=== PATIENT | female | born 1960 | race Caucasian/White ===

== ENCOUNTER 2018-08-06 14:24 | Emergency (ER) | payer SELFPAY ==
[2018-08-06] MEDS ORDERED: ONDANSETRON HCL INJ/PF 4 MG/2 ML SDV IV ONE (15:04)
--- NOTE | 2018-08-06 15:13 | ER Document Report ---
ED Medical Screen (RME) - General Chief Complaint: Chest Pain Stated Complaint: CHEST PAIN TRAVEL OUTSIDE OF THE [place] IN LAST 30 DAYS: No - HPI Notes: 08/06/18 15:04 Patient is a 58-year-old female who presents complaining of CP and occ cough that began last evening and a global ORTIZ with nausea and light sensitivity x2 weeks that has been constant. The CP does not radiate. Pt states that his is one of the worst headaches she has had, but used to have bad migraines in the past. She was placed on Fioricet recently by another provider. + smoker. She is able to eat and drink, but does have a decreased p.o. intake. She is urinating normally. Denies any prolonged immobilization, distance travel, recent surgery/trauma, personal cancer history, hormone use, or previous DVT/PE. Denies fever, neck pain, URI, SOB, Abd pain, dysuria, back pain, or rash. I have treated and performed a rapid initial assessment of this patient. A comprehensive ED assessment and evaluation of the patient, analysis of test results and completion of medical decision making process will be conducted by additional ED providers. PHYSICAL EXAMINATION: GENERAL: Well-appearing, well-nourished and in no acute distress. A&Ox4. Answers questions appropriately. HEAD: Atraumatic, normocephalic. Non-tender. EYES: Pupils equal round and reactive to light, extraocular movements intact, sclera anicteric, conjunctiva are normal. No nystagmus. NECK: Normal range of motion, supple without lymphadenopathy. No rigidity/meningismus. No midline tenderness. LUNGS: Breath sounds clear to auscultation bilaterally and equal. No wheezes rales or rhonchi. HEART: Regular rate and rhythm without murmurs, rubs, gallops. Musculoskeletal: Ext b/l: FROM to passive/active. Strength 5+/5. No deficits noted. Extremities: No cyanosis, clubbing, or edema b/l. Peripheral pulses 2+. NEUROLOGICAL: NIH 0. GCS 15. Cranial nerves grossly intact. Normal speech, normal gait. Normal sensory, motor exams. Reflexes 2+ b/l. SULTANA's negative. Pronator drift negative. Heel/huang, finger/nose wnl. PSYCH: Normal mood, normal affect. SKIN: Warm, Dry, normal turgor, no rashes or lesions noted. - Related Data Allergies/Adverse Reactions: Penicillins Allergy (Verified 08/06/18 14:26) Physical Exam - Vital signs Vitals: Temp Pulse Resp BP Pulse Ox 98.4 F 58 L 18 118/62 95 08/06/18 14:38 08/06/18 14:38 08/06/18 14:38 08/06/18 14:38 08/06/18 14:38 Course - Vital Signs Vital signs: Temp Pulse Resp BP Pulse Ox 98.4 F 58 L 18 118/62 95 08/06/18 14:38 08/06/18 14:38 08/06/18 14:38 08/06/18 14:38 08/06/18 14:38
--- NOTE | 2018-08-06 15:37 | RADIOLOGY REPORT (SQ) ---
EXAM DESCRIPTION: CT HEAD WITHOUT COMPLETED DATE/TIME: 08/06/2018 3:29 pm REASON FOR STUDY: ORTIZ COMPARISON: None. TECHNIQUE: Axial images acquired through the brain without intravenous contrast. Images reviewed wi th bone, brain and subdural windows. Additional sagittal and coronal reconstructions were generated. Images stored on PACS. All CT scanners at this facility use dose modulation, iterative reconstruction, and/or weight based d osing when appropriate to reduce radiation dose to as low as reasonably achievable (ALARA). [facility]: Dose Right [facility]: CareDose [facility]: Dose Right [facility]: Teradose 4D [facility]: [employer] RADIATION DOSE: CT Rad equipment meets quality standard of care and radiation dose reduction techniq ues were employed. CTDIvol: 53.2 mGy. DLP: 1017 mGy-cm. mGy. LIMITATIONS: None. FINDINGS: VENTRICLES: Normal size and contour. CEREBRUM: No masses. No hemorrhage. No midline shift. No evidence for acute infarction. Normal gra y/white matter differentiation. No areas of low density in the white matter. CEREBELLUM: No masses. No hemorrhage. No alteration of density. No evidence for acute infarction. EXTRAAXIAL SPACES: No fluid collections. No masses. ORBITS AND GLOBE: No intra- or extraconal masses. Normal contour of globe without masses. CALVARIUM: No fracture. PARANASAL SINUSES: No fluid or mucosal thickening. SOFT TISSUES: No mass or hematoma. OTHER: No other significant finding. IMPRESSION: NORMAL BRAIN CT WITHOUT CONTRAST. EVIDENCE OF ACUTE STROKE: NO. COMMENT: Quality ID # [id number]: Final reports with documentation of one or more dose reduction techniques (e.g., Automated exposure control, adjustment of the mA and/or kV according to patient size, use of iterative reconstruction technique) TECHNICAL DOCUMENTATION: JOB ID: [id number] [employer]- All Rights Reserved Reading location - IP/workstation name: [email or web address]
--- NOTE | 2018-08-06 16:00 | EKG REPORT ---
SEVERITY:- ABNORMAL ECG - SINUS RHYTHM LEFT ANTERIOR FASCICULAR BLOCK : Confirmed by: Bobby Fletcher MD 06-Aug-2018 15:58:57
[2018-08-06] MEDS ORDERED: DEXAMETHASONE SOD PHOS INJ 10 MG/1 ML VIAL IV ONE (16:06)
[2018-08-06] MEDS ORDERED: KETOROLAC TROMETHAMINE INJ/PF 30 MG/1 ML SDV IV ONE (16:07)
[2018-08-06] MEDS ORDERED: MAGNESIUM SULFATE/D5W 1 GM/100 ML RTUPB IV ONE (16:07)
[2018-08-06 16:16] LABS: ABSOLUTE BASOPHILS # (AUTO) 0.1 10^3/uL (0.0-0.2); ABSOLUTE EOSINOPHILS # (AUTO) 0.2 10^3/uL (0.0-0.6); ABSOLUTE LYMPHOCYTES (AUTO) 2.7 10^3/uL (0.5-4.7); ABSOLUTE MONOCYTES (AUTO) 0.9 10^3/uL (0.1-1.4); ABSOLUTE NEUT (AUTO) 5.9 10^3/uL (1.7-8.2); BASOPHILS % (AUTO) 0.9 % (0-2); EOSINOPHILS % (AUTO) 2.1 % (0-6); HEMATOCRIT 44.8 % (36.0-47.0); HEMOGLOBIN 15.2 g/dL (12.0-15.5); LYMPHOCYTES % (AUTO) 27.4 % (13-45); MEAN CORPUSCULAR VOLUME 88 fl (80-97); MONOCYTES % (AUTO) 9.1 % (3-13); PLATELET COUNT 215 10^3/uL (150-450); RED BLOOD COUNT 5.09 10^6/uL (3.72-5.28); SEGMENTED NEUTROPHILS % (AUTO) 60.5 % (42-78); TOTAL CELLS COUNTED % (AUTO) 100 %; WHITE BLOOD COUNT 9.7 10^3/uL (4.0-10.5)
--- NOTE | 2018-08-06 16:18 | RADIOLOGY REPORT (SQ) ---
EXAM DESCRIPTION: CHEST SINGLE VIEW COMPLETED DATE/TIME: 08/06/2018 4:00 pm REASON FOR STUDY: CP COMPARISON: None. EXAM PARAMETERS: NUMBER OF VIEWS: One view. TECHNIQUE: Single frontal radiographic view of the chest acquired. RADIATION DOSE: NA LIMITATIONS: None. FINDINGS: LUNGS AND PLEURA: No opacities, masses or pneumothorax. No pleural effusion. MEDIASTINUM AND HILAR STRUCTURES: No masses. Contour normal. HEART AND VASCULAR STRUCTURES: Heart normal in size. Normal vasculature. BONES: No acute findings. HARDWARE: None in the chest. OTHER: No other significant finding. IMPRESSION: NO ACUTE RADIOGRAPHIC FINDING IN THE CHEST. TECHNICAL DOCUMENTATION: JOB ID: [id number] [place]-72 2010 [employer]- All Rights Reserved Reading location - IP/workstation name: [facility]
--- NOTE | 2018-08-06 16:18 | ER Document Report ---
ED General - General Chief Complaint: Chest Pain Stated Complaint: CHEST PAIN Time Seen by Provider: 08/06/18 15:14 Primary Care Provider: [facility] [Primary Care Provider] - Follow up in 3-5 days Notes: Patient is a 58 year old female that presents to the emergency department for chief complaint of headache and chest discomfort. Patient states she is been having a headache for over 2 weeks, it started on the left side of her head, with associated photophobia but now she feels like it is most of her head. Is been gradual building up, she states has had migraines in the past but it has been a while. She is had some mild associated nausea but no vomiting. She is had associated cough recently as well, and states she is had some chest discomfort she states that it is tender to push along her sternum, and that is the same pain. She denies having any shortness of breath, diaphoresis, the pain in her chest is not worse with exertion, nor is it better with rest. Denies any leg swelling, redness or prolonged recent travel. She also reports she recently saw her primary care on , was told that her blood sugar was low and she is being checked up for that with recent blood work but she does not know the results. Past Medical History: COPD, migraines Past Surgical History: C-sections x2 Social History: Admits to smoking cigarettes and occasional alcohol use, denies illicit drug use. Family History: Reviewed and noncontributory for presenting illness Allergies: Reviewed, see documented allergy list. REVIEW OF SYSTEMS: Other than noted above, the 12 point review of systems was reviewed with the patient and were negative, all pertinent findings are included in the HPI. PHYSICAL EXAMINATION: Vital signs reviewed, nursing noted reviewed. GENERAL: Well-appearing, well-nourished and in no acute distress. HEAD: Atraumatic, normocephalic. EYES: Eyes appear normal, extraocular movements intact, sclera anicteric, conjunctiva are normal. PERRLA ENT: nares patent, oropharynx clear without exudates. Moist mucous membranes. NECK: Normal range of motion, supple without lymphadenopathy LUNGS: Breath sounds clear to auscultation bilaterally and equal. No wheezes rales or rhonchi. Reproducible chest wall tenderness with palpation. HEART: Regular rate and rhythm without murmurs ABDOMEN: Soft, nontender, normoactive bowel sounds. No rebound, guarding, or rigidity. No masses appreciated. EXTREMITIES: Nontender, good range of motion, no pitting or edema. NEUROLOGICAL: No focal neurological deficits. Moves all extremities spontaneously Motor and sensory grossly intact on exam. PSYCH: Normal mood, normal affect. SKIN: Warm, Dry, normal turgor, no rashes or lesions noted on exposed skin TRAVEL OUTSIDE OF THE [place] IN LAST 30 DAYS: No - Related Data Allergies/Adverse Reactions: Penicillins Allergy (Verified 08/06/18 14:26) Past Medical History - Social History Smoking Status: Current Every Day Smoker Family History: Reviewed & Not Pertinent Physical Exam - Vital signs Vitals: Temp Pulse Resp BP Pulse Ox 98.4 F 58 L 18 118/62 95 08/06/18 14:38 08/06/18 14:38 08/06/18 14:38 08/06/18 14:38 08/06/18 14:38 Course - Re-evaluation Re-evalutation: Patient seen and examined vital signs reviewed. Laboratory data and/or imaging were ordered as appropriate for the patient's presenting symptoms and complaint, with consideration of any critical or life threatening conditions that may be associated with their obtained history and exam as noted above. Patient was treated with migraine cocktail, after negative CT imaging ordered in triage Results were reviewed when available and demonstrated negative CT, unremarkable blood work, negative troponin, EKG was nonischemic pattern, patient had reproducible chest wall tenderness. The patient was re-evaluated and was stable and improved, patient's headache appear to be chronic, have been going on for about 3 weeks, and gradual in onset, and similar to her prior migraines, advised follow-up with her primary care, she is very prescribed Fioricet, advised to take 2 tablets if needed every 4-6 hours and to follow-up. She is also given a prescription for Robaxin to try at home but not to take in conjunction with the Fioricet. Evaluation was most consistent with headache, chest pain Results were discussed with the patient at this point, after careful consideration I feel that that patient can be discharged from the emergency department, the patient was educated treatments and reasons to return to the emergency department based on their presumed diagnosis as noted above, they were advised to followup with a primary care physician in 2-3 days. Patient was agreeable to plan of care. *Note is created using voice recognition software and may contain spelling, syntax or grammatical errors. Laboratory 08/06/18 08/06/18 08/06/18 15:42 15:42 15:42 WBC 9.7 RBC 5.09 Hgb 15.2 Hct 44.8 MCV 88 MCH 30.0 MCHC 34.0 RDW 14.0 Plt Count 215 Seg Neutrophils % 60.5 Lymphocytes % 27.4 Monocytes % 9.1 Eosinophils % 2.1 Basophils % 0.9 Absolute Neutrophils 5.9 Absolute Lymphocytes 2.7 Absolute Monocytes 0.9 Absolute Eosinophils 0.2 Absolute Basophils 0.1 Sodium 142.8 Potassium 4.7 Chloride 104 Carbon Dioxide 31 H Anion Gap 8 BUN 16 Creatinine 0.84 Est GFR ( Amer) > 60 Est GFR (Non-Af Amer) > 60 Glucose 79 Calcium 9.9 Total Bilirubin 0.6 Direct Bilirubin 0.4 Neonat Total Bilirubin Not Reportable Neonat Direct Bilirubin Not Reportable Neonat Indirect Bili Not Reportable AST 21 ALT 24 Alkaline Phosphatase 87 Troponin I < 0.012 Total Protein 7.3 Albumin 4.2 Chest X-Ray 08/06/18 15:04 IMPRESSION: NO ACUTE RADIOGRAPHIC FINDING IN THE CHEST. Head CT 08/06/18 15:13 IMPRESSION: NORMAL BRAIN CT WITHOUT CONTRAST. EVIDENCE OF ACUTE STROKE: NO. - Vital Signs Vital signs: Temp Pulse Resp BP Pulse Ox 97.8 F 58 L 21 H 126/83 H 95 08/06/18 19:32 08/06/18 14:38 08/06/18 19:32 08/06/18 19:32 08/06/18 19:32 - Laboratory Result Diagrams: 08/06/18 15:42 08/06/18 15:42 Laboratory results interpreted by me: 08/06/18 15:42 Carbon Dioxide 31 H - EKG Interpretation by Me Additional EKG results interpreted by me: EKG demonstrates sinus rhythm with a ventricular rate of 67 bpm, left axis deviation, QTC 440 ms, no evidence of acute ischemia in this EKG and no prior for comparison. Discharge - Discharge Clinical Impression: Chest wall pain Headache Qualifiers: Headache type: unspecified Headache chronicity pattern: unspecified pattern Intractability: not intractable Qualified Code(s): R51 - Headache Condition: Stable Disposition: HOME, SELF-CARE Instructions: Chest Pain of Unclear Cause ([facility]), Headache ([facility]) Additional Instructions: Please try taking the Fioricet again that you are previously prescribed, I recommend taking 2 tablets every 4-6 hours for headache, you could alternatively take the prescribed muscle relaxer to see if it helps as well. Please follow-up with your primary care physician, call for an appointment. Prescriptions: Methocarbamol [Robaxin 750 mg Tablet] 750 mg PO Q6 PRN #15 tablet PRN Reason: headache Referrals: [facility] [Primary Care Provider] - Follow up in 3-5 days
[2018-08-06 16:32] LABS: ALANINE AMINOTRANSFERASE 24 U/L (9-52); ALBUMIN 4.2 g/dL (3.5-5.0); ALKALINE PHOSPHATASE 87 U/L (38-126); ANION GAP 8 (5-19); ASPARTATE AMINO TRANSFERASE 21 U/L (14-36); BILIRUBIN,DIRECT 0.4 mg/dL (0.0-0.4); BILIRUBIN,TOTAL 0.6 mg/dL (0.2-1.3); BLOOD UREA NITROGEN 16 mg/dL (7-20); CALCIUM 9.9 mg/dL (8.4-10.2); CARBON DIOXIDE 31 mmol/L (22-30); CHLORIDE 104 mmol/L (98-107); GLUCOSE 79 mg/dL (75-110); POTASSIUM 4.7 mmol/L (3.6-5.0); SODIUM 142.8 mmol/L (137-145); TOTAL PROTEIN 7.3 g/dL (6.3-8.2)
[2018-08-06 19:41] VITALS: BP 126/83
== END 2018-08-06 19:42 | disposition home or self-care (01) ==
LOC: ER 14:24
DX: R51 Headache (principal); R07.89 Other chest pain; R11.0 Nausea; Z86.69 Personal history of other diseases of the nervous system and sense organs; R05 Cough; J44.9 Chronic obstructive pulmonary disease, unspecified; F17.210 Nicotine dependence, cigarettes, uncomplicated; Z88.0 Allergy status to penicillin
CPT/HCPCS: 93005; 99284; 96374; 96375; 36415; 85025; 80053; 84484; 71045; 70450; 93010; J1885; J3475; J2405; J1100

== ENCOUNTER → 2019-01-18 | Outpatient (CLI) | payer OTHER ==
[2019-01-18 12:19] LABS: ABSOLUTE EOSINOPHILS # (AUTO) 0.2 10^3/uL (0.0-0.6); ABSOLUTE LYMPHOCYTES (AUTO) 3.1 10^3/uL (0.5-4.7); ABSOLUTE MONOCYTES (AUTO) 0.6 10^3/uL (0.1-1.4); ABSOLUTE NEUT (AUTO) 4.3 10^3/uL (1.7-8.2); BASOPHILS % (AUTO) 0.6 % (0-2); HEMATOCRIT 44.9 % (36.0-47.0); HEMOGLOBIN 15.2 g/dL (12.0-15.5); LYMPHOCYTES % (AUTO) 37.9 % (13-45); MEAN CORPUSCULAR HEMOGLOBIN 30.1 pg (27.0-33.4); MEAN CORPUSCULAR HGB CONC 33.9 g/dL (32.0-36.0); MEAN CORPUSCULAR VOLUME 89 fl (80-97); PLATELET COUNT 188 10^3/uL (150-450); RED BLOOD COUNT 5.07 10^6/uL (3.72-5.28); SEGMENTED NEUTROPHILS % (AUTO) 51.5 % (42-78); TOTAL CELLS COUNTED % (AUTO) 100 %; WHITE BLOOD COUNT 8.3 10^3/uL (4.0-10.5)
[2019-01-18 12:41] LABS: ALKALINE PHOSPHATASE 95 U/L (38-126); ANION GAP 8 (5-19); ASPARTATE AMINO TRANSFERASE 16 U/L (14-36); BILIRUBIN,DIRECT 0.1 mg/dL (0.0-0.4); BILIRUBIN,TOTAL 0.4 mg/dL (0.2-1.3); BLOOD UREA NITROGEN 15 mg/dL (7-20); CALCIUM 9.5 mg/dL (8.4-10.2); CARBON DIOXIDE 29 mmol/L (22-30); CHLORIDE 105 mmol/L (98-107); CHOLESTEROL 269.19 mg/dL (0-200); GLUCOSE 110 mg/dL (75-110); POTASSIUM 4.9 mmol/L (3.6-5.0); TOTAL PROTEIN 7.3 g/dL (6.3-8.2); TRIGLYCERIDES 169 mg/dL (<150)
[2019-01-18 12:52] LABS: DIRECT LDL 187 mg/dL (<100)
[2019-01-18 13:26] LABS: VLDL CHOLESTEROL 33.8 mg/dL (10-31)
== END ==
LOC: OD 11:02
DX: Z00.00 Encounter for general adult medical examination without abnormal findings (principal)
CPT/HCPCS: 36415; 80053; 80061; 84443; 85025; 86701

== ENCOUNTER → 2019-01-23 | Outpatient (CLI) | payer OTHER ==
--- NOTE | 2019-01-23 16:37 | RADIOLOGY REPORT (SQ) ---
EXAM DESCRIPTION: CT CHEST WITHOUT COMPLETED DATE/TIME: 01/23/2019 1:44 pm REASON FOR STUDY: PERSONAL HX OF NICOTINE DEPENDENCE (Z87.891) R10.30 LOWER ABDOMINAL PAIN, UNSPECI FIED Z87.891 PERSONAL HISTORY OF NICOTINE DEPENDENCE COMPARISON: None. TECHNIQUE: CT scan performed of the chest without intravenous contrast. Images reviewed with lung, soft tissue and bone windows. Reconstructed coronal and sagittal MPR images reviewed. All images st ored on PACS. All CT scanners at this facility use dose modulation, iterative reconstruction, and/or weight based d osing when appropriate to reduce radiation dose to as low as reasonably achievable (ALARA). [facility]: Dose Right [facility]: CareDose [facility]: Dose Right [facility]: Teradose 4D [facility]: [employer] RADIATION DOSE: CT Rad equipment meets quality standard of care and radiation dose reduction techniq ues were employed. CTDIvol: 6.1 - 7.9 mGy. DLP: 684 mGy-cm. mGy. LIMITATIONS: No technical limitations. FINDINGS: LUNGS AND PLEURA: Mild paraseptal emphysema upper lobes. No suspicious nodules. No effus ions. Mild scarring in the lingula. HILAR AND MEDIASTINAL STRUCTURES: No identified masses or abnormal nodes. No obvious aneurysm. HEART AND VASCULAR STRUCTURES: No aneurysm. No pericardial effusion. UPPER ABDOMEN: See separate report of the CT of the abdomen. THYROID AND OTHER SOFT TISSUES: No masses. No adenopathy. BONES: Nothing acute. HARDWARE: None in the chest. OTHER: No other significant findings. IMPRESSION: NO SIGNIFICANT FINDING ON NON-CONTRASTED CHEST CT. TECHNICAL DOCUMENTATION: JOB ID: [id number] Quality ID # [id number]: Final reports with documentation of one or more dose reduction techniques (e.g., Au tomated exposure control, adjustment of the mA and/or kV according to patient size, use of iterative reconstruction technique) 2010 [employer]- All Rights Reserved Reading location - IP/workstation name: [email or web address]
--- NOTE | 2019-01-23 16:41 | RADIOLOGY REPORT (SQ) ---
EXAM DESCRIPTION: CT ABD/PELVIS ORAL ONLY COMPLETED DATE/TIME: 01/23/2019 1:47 pm REASON FOR STUDY: ABD PAIN (R10.9) R10.30 LOWER ABDOMINAL PAIN, UNSPECIFIED Z87.891 PERSONAL HISTO RY OF NICOTINE DEPENDENCE COMPARISON: None. TECHNIQUE: CT scan of the abdomen and pelvis performed with oral contrast and no intravenous contras t. Images reviewed with lung, soft tissue, and bone windows. Reconstructed coronal and sagittal MPR i mages reviewed. All images stored on PACS. All CT scanners at this facility use dose modulation, iterative reconstruction, and/or weight based d osing when appropriate to reduce radiation dose to as low as reasonably achievable (ALARA). [facility]: Dose Right [facility]: CareDose [facility]: Dose Right [facility]: Teradose 4D [facility]: [employer] RADIATION DOSE: mGy. LIMITATIONS: None. FINDINGS: LOWER CHEST: See separate report of the CT of the chest. NON-CONTRASTED LIVER, SPLEEN, ADRENALS: 1.5 cm hepatic cysts and additional low-density lesions which are too small to characterize. 2 cm left adrenal nodule measuring -1 HU most likely benign adenoma. PANCREAS: No masses. No peripancreatic inflammatory changes. GALLBLADDER: No identified stones by CT criteria. No inflammatory changes to suggest cholecystitis. RIGHT KIDNEY AND URETER: No suspicious masses. Assessment limited by lack of IV contrast. No signif icant calcifications. No hydronephrosis or hydroureter. LEFT KIDNEY AND URETER: No suspicious masses. Assessment limited by lack of IV contrast. No signifi cant calcifications. No hydronephrosis or hydroureter. AORTA AND RETROPERITONEUM: No aneurysm. No retroperitoneal masses or adenopathy. BOWEL AND PERITONEAL CAVITY: No obvious masses or inflammatory changes. No free fluid. APPENDIX: Not visualized. PELVIS, BLADDER, AND ABDOMINAL WALL: No abnormal pelvic masses. No abdominal wall hernias. Bladder un remarkable. BONES: No acute findings. OTHER: No other significant finding. IMPRESSION: No acute findings. No explanation for pain. TECHNICAL DOCUMENTATION: JOB ID: [id number] Quality ID # [id number]: Final reports with documentation of one or more dose reduction techniques (e.g., Au tomated exposure control, adjustment of the mA and/or kV according to patient size, use of iterative reconstruction technique) 2010 [employer]- All Rights Reserved Reading location - IP/workstation name: [email or web address]
== END ==
LOC: RAD 13:18
PROVIDERS: ATTEND Family Medicine
DX: Z87.891 Personal history of nicotine dependence (principal); R10.9 Unspecified abdominal pain
CPT/HCPCS: 71250; 74176

== ENCOUNTER 2019-03-12 11:07 | Emergency (ER) | payer OTHER ==
--- NOTE | 2019-03-12 11:30 | ER Document Report ---
ED Medical Screen (RME) - General Chief Complaint: Cough Stated Complaint: COUGH,CONGESTION,SORE THROAT Time Seen by Provider: 03/12/19 11:27 Primary Care Provider: [facility] [Primary Care Provider] - Follow up as needed TRAVEL OUTSIDE OF THE [place] IN LAST 30 DAYS: No - HPI Notes: 03/12/19 11:29 Patient is a 58-year-old female with a history of COPD/asthma and "prediabetic" who presents complaining of nasal congestion/discharge, dry to semi-productive cough, body aches, lower abdominal pains intermittently for the past 2 to 3 weeks. She has had some diarrhea associated as well. I have treated and performed a rapid initial assessment of this patient. A comprehensive ED assessment and evaluation of the patient, analysis of test results and completion of medical decision making process will be conducted by additional ED providers. PHYSICAL EXAMINATION: GENERAL: Well-appearing, well-nourished and in no acute distress. A&Ox4. Answers questions appropriately. Lungs: CTAB without retractions. Abdomen: Limited exam in triage, there is mild tenderness to the lower abdomen. - Related Data Allergies/Adverse Reactions: Penicillins Allergy (Verified 08/06/18 14:26) Past Medical History Pulmonary Medical History: Reports: Hx Bronchitis Renal/ Medical History: Denies: Hx Peritoneal Dialysis Psychiatric Medical History: Reports: Hx Depression Past Surgical History: Reports: Hx Section - x'2, Hx Hysterectomy Physical Exam - Vital signs Vitals: Temp Pulse Resp BP Pulse Ox 97.8 F 63 18 155/85 H 94 03/12/19 11:11 03/12/19 11:11 03/12/19 11:11 03/12/19 11:11 03/12/19 11:11 Course - Vital Signs Vital signs: Temp Pulse Resp BP Pulse Ox 97.8 F 63 18 155/85 H 94 03/12/19 11:11 03/12/19 11:11 03/12/19 11:11 03/12/19 11:11 03/12/19 11:11 Doctor's Discharge - Discharge Referrals: IS[facility] TUR[facility] [Primary Care Provider] - Follow up as needed
[2019-03-12] MEDS ORDERED: NORMAL SALINE 1000 ML 1,000 ML IV ONE (11:31)
[2019-03-12 12:00] LABS: ABSOLUTE BASOPHILS # (AUTO) 0.1 10^3/uL (0.0-0.2); ABSOLUTE EOSINOPHILS # (AUTO) 0.2 10^3/uL (0.0-0.6); ABSOLUTE LYMPHOCYTES (AUTO) 3.1 10^3/uL (0.5-4.7); ABSOLUTE MONOCYTES (AUTO) 0.6 10^3/uL (0.1-1.4); ABSOLUTE NEUT (AUTO) 5.5 10^3/uL (1.7-8.2); BASOPHILS % (AUTO) 0.6 % (0-2); EOSINOPHILS % (AUTO) 1.8 % (0-6); HEMATOCRIT 47.2 % (36.0-47.0); HEMOGLOBIN 15.9 g/dL (12.0-15.5); LYMPHOCYTES % (AUTO) 33.1 % (13-45); MEAN CORPUSCULAR HEMOGLOBIN 30.3 pg (27.0-33.4); MEAN CORPUSCULAR HGB CONC 33.7 g/dL (32.0-36.0); MEAN CORPUSCULAR VOLUME 90 fl (80-97); MONOCYTES % (AUTO) 6.4 % (3-13); PLATELET COUNT 236 10^3/uL (150-450); RED BLOOD COUNT 5.26 10^6/uL (3.72-5.28); RED CELL DISTRIBUTION WIDTH 13.8 % (11.5-14.0); SEGMENTED NEUTROPHILS % (AUTO) 58.1 % (42-78); TOTAL CELLS COUNTED % (AUTO) 100 %; WHITE BLOOD COUNT 9.5 10^3/uL (4.0-10.5)
--- NOTE | 2019-03-12 12:08 | RADIOLOGY REPORT (SQ) ---
EXAM DESCRIPTION: CHEST 2 VIEWS COMPLETED DATE/TIME: 03/12/2019 11:56 am REASON FOR STUDY: cough COMPARISON: 08/06/2018 EXAM PARAMETERS: NUMBER OF VIEWS: two views TECHNIQUE: Digital Frontal and Lateral radiographic views of the chest acquired. RADIATION DOSE: NA LIMITATIONS: none FINDINGS: LUNGS AND PLEURA: No opacities, masses or pneumothorax. No pleural effusion. MEDIASTINUM AND HILAR STRUCTURES: No masses or contour abnormalities. HEART AND VASCULAR STRUCTURES: Heart normal size. No evidence for failure. BONES: No acute findings. HARDWARE: None in the chest. OTHER: No other significant finding. IMPRESSION: NO ACUTE RADIOGRAPHIC FINDING IN THE CHEST. TECHNICAL DOCUMENTATION: JOB ID: [id number] [employer]- All Rights Reserved Reading location - IP/workstation name: [email or web address]
[2019-03-12 12:11] LABS: APPEARANCE,URINE CLEAR; BILIRUBIN,URINE NEGATIVE (NEGATIVE); COLOR,URINE YELLOW; GLUCOSE, URINE NEGATIVE (NEGATIVE); KETONES,URINE NEGATIVE (NEGATIVE); PROTEIN,URINE NEGATIVE (NEGATIVE); URINE SPECIFIC GRAVITY 1.009; UROBILINOGEN,URINE NEGATIVE mg/dL (<2.0)
[2019-03-12 12:20] LABS: ALBUMIN 4.3 g/dL (3.5-5.0); ALKALINE PHOSPHATASE 100 U/L (38-126); ANION GAP 10 (5-19); ASPARTATE AMINO TRANSFERASE 20 U/L (14-36); BILIRUBIN,DIRECT 0.2 mg/dL (0.0-0.4); BILIRUBIN,TOTAL 0.4 mg/dL (0.2-1.3); BLOOD UREA NITROGEN 11 mg/dL (7-20); CALCIUM 9.7 mg/dL (8.4-10.2); CARBON DIOXIDE 26 mmol/L (22-30); CHLORIDE 105 mmol/L (98-107); GLUCOSE 137 mg/dL (75-110); POTASSIUM 4.3 mmol/L (3.6-5.0); TOTAL PROTEIN 7.6 g/dL (6.3-8.2)
[2019-03-12] MEDS ORDERED: IPRATROPIUM/ALBUTEROL 0.5-2.5 MG/3 ML AMPUL NEB ONE (13:57)
--- NOTE | 2019-03-12 13:59 | ER Document Report ---
ED General - General Chief Complaint: Flu Symptoms Stated Complaint: COUGH,CONGESTION,SORE THROAT Time Seen by Provider: 03/12/19 11:27 [facility] [NO LOCAL MD] - Follow up in 3-5 days Mode of Arrival: Ambulatory Information source: Patient Notes: Patient presents complaining of a three-week history of cough congestion. Patient states cough has been productive. Patient reports subjective fever off and on. Patient states she is had nausea with diarrhea symptoms for the past week. Patient reports 4 diarrhea episodes today. Patient complains of periumbilical abdominal tenderness for the past week. TRAVEL OUTSIDE OF THE [place] IN LAST 30 DAYS: No - HPI Onset: Last week Onset/Duration: Persistent Quality of pain: Cramping, Sharp Pain Level: 3 Associated symptoms: Chills, Productive cough, Diarrhea, Fever, Nausea. denies: Chest pain, Vomiting, Shortness of breath Exacerbated by: Denies Relieved by: Denies Similar symptoms previously: No Recently seen / treated by doctor: No - Related Data Allergies/Adverse Reactions: Penicillins Allergy (Verified 08/06/18 14:26) Past Medical History - General Information source: Patient - Social History Smoking Status: Current Every Day Smoker Chew tobacco use (# tins/day): No Frequency of alcohol use: None Drug Abuse: None Occupation: None Family History: Reviewed & Not Pertinent Patient has suicidal ideation: No Patient has homicidal ideation: No Pulmonary Medical History: Reports: Hx Asthma, Hx Bronchitis, Hx COPD Renal/ Medical History: Denies: Hx Peritoneal Dialysis Psychiatric Medical History: Reports: Hx Depression Past Surgical History: Reports: Hx Section - x'2, Hx Hysterectomy Review of Systems - Review of Systems Constitutional: No symptoms reported. denies: Fever, Recent illness EENT: No symptoms reported Cardiovascular: No symptoms reported. denies: Chest pain Respiratory: Cough, Sputum. denies: Short of breath Gastrointestinal: Abdominal pain, Diarrhea, Nausea. denies: Vomiting Genitourinary: No symptoms reported. denies: Dysuria, Flank pain Female Genitourinary: No symptoms reported Musculoskeletal: No symptoms reported. denies: Back pain Skin: No symptoms reported Hematologic/Lymphatic: No symptoms reported Neurological/Psychological: No symptoms reported Physical Exam - Vital signs Vitals: Temp Pulse Resp BP Pulse Ox 97.8 F 63 18 155/85 H 94 03/12/19 11:11 03/12/19 11:11 03/12/19 11:11 03/12/19 11:11 03/12/19 11:11 - General General appearance: Appears well, Alert In distress: None - HEENT Head: Normocephalic, Atraumatic Eyes: Normal Conjunctiva: Normal Nasal: Normal Mouth/Lips: Normal Mucous membranes: Normal Pharynx: Normal. No: Erythema, Exudate, Tonsillar hypertrophy Neck: Normal, Supple. No: Lymphadenopathy - Respiratory Respiratory status: No respiratory distress Chest status: Nontender Breath sounds: Nonproductive cough, Wheezing - with cough Chest palpation: Normal - Cardiovascular Rhythm: Regular Heart sounds: S2 appreciated Murmur: No - Abdominal Inspection: Normal Distension: No distension Bowel sounds: Normal Tenderness: Tender - Periumbilical Organomegaly: No organomegaly - Back Back: Normal, Nontender. No: CVA tenderness - Extremities General upper extremity: Normal inspection, Nontender, Normal strength General lower extremity: Normal inspection, Nontender, Normal strength - Neurological Neuro grossly intact: Yes Cognition: Normal Evette Coma Scale Eye Opening: Spontaneous [place] Coma Scale Verbal: Oriented Evette Coma Scale Motor: Obeys Commands [place] Coma Scale Total: 15 - Psychological Associated symptoms: Normal affect, Normal mood - Skin Skin Temperature: Warm Skin Moisture: Dry Skin Color: Normal Course - Re-evaluation Re-evalutation: 03/12/19 17:[address] scan reviewed, no concern for any appendicitis or other acute findings at this time. Patient with incidental adrenal mass as well as hepatic cyst. Patient was given a copy of her CT scan and encouraged to follow-up with her primary doctor for outpatient follow-up of these incidental findings. Patient will be treated for COPD exacerbation at this time. Suspect patient's abdominal pain symptoms are likely result of viral gastrointestinal illness given the history of nausea and diarrhea. Patient presents with abdominal pain without signs of peritonitis or other life-threatening or serious etiology. Patient appears stable for discharge and has been instructed to return immediately if the symptoms worsen in any way. - Vital Signs Vital signs: Temp Pulse Resp BP Pulse Ox 98.8 F 71 15 137/70 H 92 03/12/19 18:06 03/12/19 18:06 03/12/19 18:06 03/12/19 18:06 03/12/19 18:06 - Laboratory Result Diagrams: 03/12/19 11:37 03/12/19 11:37 Laboratory results interpreted by me: 03/12/19 03/12/19 03/12/19 11:37 11:37 11:37 Hgb 15.9 H Hct 47.2 H Glucose 137 H Urine Blood MODERATE H 03/12/19 17:55 Labs- Entire Visit 03/12/19 03/12/19 03/12/19 11:37 11:37 11:37 WBC 9.5 RBC 5.26 Hgb 15.9 H Hct 47.2 H MCV 90 MCH 30.3 MCHC 33.7 RDW 13.8 Plt Count 236 Lymph % (Auto) 33.1 [place] % (Auto) 6.4 Eos % (Auto) 1.8 Baso % (Auto) 0.6 Absolute Neuts (auto) 5.5 Absolute Lymphs (auto) 3.1 Absolute Monos (auto) 0.6 Absolute Eos (auto) 0.2 Absolute Basos (auto) 0.1 Seg Neutrophils % 58.1 Sodium 140.9 Potassium 4.3 Chloride 105 Carbon Dioxide 26 Anion Gap 10 BUN 11 Creatinine 0.77 Est GFR ( Amer) > 60 Est GFR (MDRD) Non-Af > 60 Glucose 137 H Calcium 9.7 Total Bilirubin 0.4 Direct Bilirubin 0.2 Neonat Total Bilirubin Not Reportable Neonat Direct Bilirubin Not Reportable Neonat Indirect Bili Not Reportable AST 20 ALT 15 Alkaline Phosphatase 100 Total Protein 7.6 Albumin 4.3 Lipase 89.0 Urine Color YELLOW Urine Appearance CLEAR Urine pH 7.0 Ur Specific [place] 1.009 Urine Protein NEGATIVE Urine Glucose (UA) NEGATIVE Urine Ketones NEGATIVE Urine Blood MODERATE H Urine Nitrite (Reflex) NEGATIVE Urine Bilirubin NEGATIVE Urine Urobilinogen NEGATIVE Leukocyte Esterase Rfl NEGATIVE Urine RBC (Auto) 4 Urine WBC (Reflex) 1 Squamous Epi Cells Auto 2 Urine Mucus (Auto) RARE Urine Ascorbic Acid NEGATIVE - Diagnostic Test Radiology reviewed: Reports reviewed Discharge - Discharge Clinical Impression: COPD exacerbation Diarrhea Qualifiers: Diarrhea type: unspecified type Qualified Code(s): R19.7 - Diarrhea, unspecified Abdominal pain Qualifiers: Abdominal location: unspecified location Qualified Code(s): R10.9 - Unspecified abdominal pain Condition: Stable Disposition: HOME, SELF-CARE Instructions: Abdominal Pain ([facility]), Antinausea Medication ([facility]), Chronic Obstructive Lung Disease ([facility]), Diarrhea, Nonspecific ([facility]), Doxycycline ([facility]), Steroid Medication Additional Instructions: Return immediately for any new or worsening symptoms: Fever, worsening pain symptoms, persistent diarrhea, difficulty breathing, or any new or worsening symptoms Followup with your primary care provider, call tomorrow to make a followup appointment Follow-up with your primary doctor regarding incidental findings on CT scan including hepatic cyst and adrenal mass. Prescriptions: Prednisone [Deltasone 20 mg Tablet] 2 tab PO DAILY 4 Days tablet Doxycycline Hyclate 100 mg PO BID #20 capsule Ondansetron HCl [Zofran 4 mg Tablet] 1 - 2 tab PO Q6 PRN #15 tablet PRN Reason: Referrals: [facility] [NO LOCAL MD] - Follow up in 3-5 days
[2019-03-12] MEDS ORDERED: ONDANSETRON HCL INJ/PF 4 MG/2 ML SDV IV ONE (16:01)
--- NOTE | 2019-03-12 17:32 | RADIOLOGY REPORT (SQ) ---
EXAM DESCRIPTION: CT ABD/PELVIS WITH IV ORAL COMPLETED DATE/TIME: 03/12/2019 5:16 pm REASON FOR STUDY: abd pain COMPARISON: None. TECHNIQUE: CT scan of the abdomen and pelvis performed with intravenous and oral contrast using dorinda maurilio scanning technique with dynamic intravenous contrast injection. Images reviewed with lung, soft t issue, and bone windows. Reconstructed coronal and sagittal MPR images reviewed. Delayed images for e valuation of the urinary system also acquired. All images stored on PACS. All CT scanners at this facility use dose modulation, iterative reconstruction, and/or weight based d osing when appropriate to reduce radiation dose to as low as reasonably achievable (ALARA). [facility]: Dose Right [facility]: CareDose [facility]: Dose Right [facility]: Teradose 4D [facility]: [employer] CONTRAST TYPE AND DOSE: contrast/concentration: Isovue 350.00 mg/ml; Total Contrast Delivered: 87.0 ml; Total Saline Delivered: 69.0 ml RENAL FUNCTION: BUN 11 creatinine 0.77. RADIATION DOSE: CT Rad equipment meets quality standard of care and radiation dose reduction techniq ues were employed. CTDIvol: 7.2 - 10.1 mGy. DLP: 942 mGy-cm.. LIMITATIONS: None. FINDINGS: LOWER CHEST: No significant findings. No nodules or infiltrates. LIVER: Normal size. Stable low-attenuation lesions. No dilated ducts. SPLEEN: Normal size. No focal lesions. PANCREAS: No masses. No significant calcifications. No adjacent inflammation or peripancreatic fluid collections. Pancreatic duct not dilated. GALLBLADDER: No identified stones by CT criteria. No inflammatory changes to suggest cholecystitis. ADRENAL GLANDS: Stable low-attenuation left adrenal mass. RIGHT KIDNEY AND URETER: No solid masses. No significant calcification. No hydronephrosis or hydroure ter. LEFT KIDNEY AND URETER: No solid masses. No significant calcification. No hydronephrosis or hydrouret er. AORTA AND VESSELS: No aneurysm. No dissection. Renal arteries, SMA, celiac without stenosis. RETROPERITONEUM: No retroperitoneal adenopathy, hemorrhage or masses. BOWEL AND PERITONEAL CAVITY: No obstruction. No visualized masses. No free fluid. No inflammatory ch anges or thickening of bowel wall. APPENDIX: Not visualized. PELVIS: No significant masses. Normal bladder. No free fluid. ABDOMINAL WALL: No masses. No hernias. BONES: No significant or acute findings. OTHER: No other significant finding. IMPRESSION: STABLE LOW-ATTENUATION LESIONS IN THE LIVER, MOST LIKELY HEPATIC CYSTS. 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 NO OTHER SIGNIFICANT OR ACUTE FINDINGS IN THE ABDOMEN OR PEL VIS. TECHNICAL DOCUMENTATION: JOB ID: [id number] Quality ID # [id number]: Final reports with documentation of one or more dose reduction techniques (e.g., Au tomated exposure control, adjustment of the mA and/or kV according to patient size, use of iterative reconstruction technique) 2010 [email or web address]- All Rights Reserved Reading location - IP/workstation name: [email or web address]
[2019-03-12] MEDS ORDERED: DOXYCYCLINE HYCLATE 100 MG TABLET PO ONE (17:55)
[2019-03-12] MEDS ORDERED: ALBUTEROL SULFATE HFA (90 MCG/PUFF) 8 GM MDI (1 MDI/ER DISP) IH ONE (17:55)
[2019-03-12] MEDS ORDERED: PREDNISONE 20 MG TABLET PO ONE (17:55)
[2019-03-12 18:10] VITALS: BP 137/70
== END 2019-03-12 18:13 | disposition home or self-care (01) ==
LOC: ER 11:07
DX: J44.1 Chronic obstructive pulmonary disease with (acute) exacerbation (principal); R19.7 Diarrhea, unspecified; R10.9 Unspecified abdominal pain; R05 Cough; R09.81 Nasal congestion; J02.9 Acute pharyngitis, unspecified; R50.9 Fever, unspecified; R11.0 Nausea; R10.33 Periumbilical pain; F17.200 Nicotine dependence, unspecified, uncomplicated
CPT/HCPCS: 94640; 99284; 96361; 96374; 36415; 83690; 85025; 80053; 81001; 71046; 74177; J7512; J2405; J7030; J3490; J7620